=== PATIENT | male | born 1990 ===

== ENCOUNTER 2025-04-29 21:21 | Emergency (ER) | payer BC ==
[2025-04-29] MEDS: Diphtheria,Pertussis(Acell),Tetanus Vaccine 0.5 ML Syringe IM ONE (22:36)
[2025-04-29] MEDS: Lidocaine 1% 10 ML MDV INJECT ONE (22:37)
[2025-04-29 23:29] VITALS: BP 150/89; PULSE 67
== END 2025-04-29 23:28 ==
LOC: JD.ED 21:21
DX: Z02.89 Encounter for other administrative examinations (principal); S01.112A Laceration without foreign body of left eyelid and periocular area, initial encounter; S61.411A Laceration without foreign body of right hand, initial encounter; F17.210 Nicotine dependence, cigarettes, uncomplicated; Z23 Encounter for immunization; Z88.6 Allergy status to analgesic agent; Y04.8XXA Assault by other bodily force, initial encounter; Y92.129 Unspecified place in nursing home as the place of occurrence of the external cause
CPT/HCPCS: 12001; 12011; 90471; 90715; 99283; J2003